=== PATIENT | female | born 1975 | race Caucasian/White ===

== ENCOUNTER → 2017-02-16 | Outpatient (CLI) | payer OTHER, MEDICAID ==
[~2017-02-16] MED LIST: BUTA1CAP58 PO; CLON0.5T PO; CYCL-259 PO; CYCL5TAB PO; DULO30CA4 PO; HYDR1TAB12 PO; LEVO750T26 PO; METR500T PO; PANT40TA5 PO; PHEN30CA2 PO; SUMA1TAB PO; TRAM50TA2 PO
[2017-02-17 09:46] LABS: HEPATITIS C VIRUS ANTIBODY Nonreactive (Nonreactive)
[2017-02-18 18:06] LABS: HERPES SIMPLEX VIRUS-1 DNA PCR Negative (Negative); HERPES SIMPLEX VIRUS-2 DNA PCR Negative (Negative)
== END | disposition home or self-care (01) ==
LOC: LAB 13:19
PROVIDERS: ATTEND Obstetrics & Gynecology
DX: Z11.3 Encounter for screening for infections with a predominantly sexual mode of transmission (principal)
CPT/HCPCS: 86592; 86803; 87340; 87491; 87529; 87591

== ENCOUNTER → 2017-03-25 | Outpatient (CLI) | payer OTHER ==
[2017-03-26 11:19] LABS: OCCBLD OBC PASS
== END | disposition home or self-care (01) ==
LOC: LAB 08:14
PROVIDERS: ATTEND Internal Medicine Hematology & Oncology
DX: D50.9 Iron deficiency anemia, unspecified (principal)
CPT/HCPCS: 82272

== ENCOUNTER → 2017-04-27 | Outpatient (CLI) | payer OTHER ==
[2017-04-27 07:32] LABS: ASPARTATE AMINO TRANSFERASE 15 U/L (15-37); BLOOD UREA NITROGEN 12 mg/dL (7-18)
== END | disposition home or self-care (01) ==
LOC: LAB 06:50
PROVIDERS: ATTEND Internal Medicine Hematology & Oncology
DX: E28.2 Polycystic ovarian syndrome (principal); D50.9 Iron deficiency anemia, unspecified
CPT/HCPCS: 36415; 80053; 82607; 82728; 83036; 85025

== ENCOUNTER 2017-05-20 11:59 | Emergency (ER) | payer OTHER, MEDICAID ==
[~2017-05-20] VITALS: Ht 154.9 cm; Wt 90.0 kg
[2017-05-20 12:07] VITALS: BP 116/79
[2017-05-20] MEDS ORDERED: KETOROLAC 30 MG/1 ML ONE (12:22)
[2017-05-20] MEDS ORDERED: KETOROLAC 30 MG/1 ML IM ONE (12:30)
== END 2017-05-20 13:04 | disposition home or self-care (01) ==
LOC: ED 12:57
DX: M72.2 Plantar fascial fibromatosis (principal); M79.672 Pain in left foot; F17.210 Nicotine dependence, cigarettes, uncomplicated; Z88.0 Allergy status to penicillin; Z88.5 Allergy status to narcotic agent
CPT/HCPCS: 73630; 96372; 99284; J1885

== ENCOUNTER → 2017-07-02 | Outpatient (CLI) | payer OTHER, MEDICAID ==
[2017-07-02 15:57] LABS: HEMATOCRIT 48.5 % (34.6-47.8); HEMOGLOBIN 15.7 g/dL (11.7-16.4); WHITE BLOOD COUNT 8.4 x10^3/uL (3.4-10)
[2017-07-02 16:38] LABS: ASPARTATE AMINO TRANSFERASE 17 U/L (15-37); BLOOD UREA NITROGEN 20 mg/dL (7-18); FERRITIN 193.9 ng/mL (8-252); LACTATE DEHYDROGENASE 203 U/L (84-246)
== END | disposition home or self-care (01) ==
LOC: CFH 13:46
PROVIDERS: ATTEND Internal Medicine Hematology & Oncology
DX: D50.9 Iron deficiency anemia, unspecified (principal); Z88.0 Allergy status to penicillin; Z88.8 Allergy status to other drugs, medicaments and biological substances
CPT/HCPCS: 36415; 80053; 82607; 82728; 83615; 85025

== ENCOUNTER → 2017-08-05 | Outpatient (CLI) | payer OTHER, MEDICAID | END | disposition home or self-care (01) | LOC: CFH 13:41 | PROVIDERS: ATTEND Nurse Practitioner Primary Care | DX: R05 Cough (principal) | CPT/HCPCS: 71020 ==

== ENCOUNTER → 2017-10-16 | Outpatient (CLI) | payer OTHER, MEDICAID ==
[~2017-10-16] MED LIST changes: -PHEN30CA2 PO; +PHEN30CA3 PO
[2017-10-16 12:35] LABS: HEMATOCRIT 47.1 % (34.6-47.8); HEMOGLOBIN 15.8 g/dL (11.7-16.4); WHITE BLOOD COUNT 6.4 x10^3/uL (3.4-10)
[2017-10-16 12:52] LABS: ASPARTATE AMINO TRANSFERASE 18 U/L (15-37); BLOOD UREA NITROGEN 11 mg/dL (7-18)
[2017-10-16 13:21] LABS: FERRITIN 72.9 ng/mL (8-252); LACTATE DEHYDROGENASE 230 U/L (84-246)
== END | disposition home or self-care (01) ==
LOC: LAB 09:15
PROVIDERS: ATTEND Internal Medicine Hematology & Oncology
DX: D50.9 Iron deficiency anemia, unspecified (principal)
CPT/HCPCS: 36415; 80053; 82607; 82728; 83615; 85025

== ENCOUNTER → 2017-11-18 | Outpatient (CLI) | payer MEDICAID, OTHER | END | disposition home or self-care (01) | LOC: CFH 11:22 | PROVIDERS: ATTEND Registered Nurse | DX: G43.709 Chronic migraine without aura, not intractable, without status migrainosus (principal) | CPT/HCPCS: 70450 ==

== ENCOUNTER → 2017-11-27 | Outpatient (CLI) | payer OTHER | END | disposition home or self-care (01) | LOC: LAB 09:08 | PROVIDERS: ATTEND Obstetrics & Gynecology | DX: Z11.3 Encounter for screening for infections with a predominantly sexual mode of transmission (principal) | CPT/HCPCS: 36415; 86703; 87529; 87536; 87899; G0435 ==

== ENCOUNTER → 2017-12-04 | Outpatient (CLI) | payer MEDICAID, OTHER | END | disposition home or self-care (01) | LOC: CFH 09:56 | PROVIDERS: ATTEND Obstetrics & Gynecology | DX: Z12.31 Encounter for screening mammogram for malignant neoplasm of breast (principal) | CPT/HCPCS: 77063; 77067 ==

== ENCOUNTER 2017-12-14 11:29 | Emergency (ER) | payer OTHER ==
[~2017-12-14] VITALS: Ht 154.9 cm; Wt 106.9 kg
[2017-12-14 11:39] VITALS: BP 127/87
[2017-12-14 12:40] LABS: BASOPHILS # (AUTO) 0.02 x10^3/uL (0-0.1); BASOPHILS % (AUTO) 0 % (0-1); EOSINOPHILS # (AUTO) 0.31 x10^3/uL (0-0.4); EOSINOPHILS % (AUTO) 4 % (1-7); LYMPHOCYTES % (AUTO) 18 % (22-44); MD NO; MEAN CORPUSCULAR HEMOGLOBIN 33.1 pg (27.0-34.8); MEAN CORPUSCULAR HGB CONC 33.6 g/dL (32.4-35.8); MEAN CORPUSCULAR VOLUME 98.7 fL (80-100); MEAN PLATELET VOLUME 9.3 fL (7.4-10.4); MONOCYTES # (AUTO) 0.53 x10^3/uL (0.2-0.8); MONOCYTES % (AUTO) 6 % (2-9); NEUTROPHILS # (AUTO) 6.48 x10^3/uL (1.8-6.8); NEUTROPHILS % (AUTO) 73 % (42-75); PLATELET COUNT 182 x10^3/uL (130-400); RED BLOOD COUNT 4.44 x10^6/uL (3.82-5.3); RED CELL DISTRIBUTION WIDTH 13.6 % (9.6-15.2)
[2017-12-14 12:52] LABS: ALBUMIN 3.7 g/dL (3.4-5.0); ANION GAP 6 mmol/L (5-15); CALCIUM 7.9 mg/dL (8.5-10.1); CHLORIDE 107 mmol/L (98-107); CREATININE 0.68 mg/dL (0.55-1.02)
[2017-12-14] MEDS ORDERED: KETOROLAC 30 MG/1 ML IM ONE (16:30)
[2017-12-14] MEDS ORDERED: KETOROLAC 30 MG/1 ML ONE (16:44)
== END 2017-12-14 17:03 | disposition home or self-care (01) ==
LOC: ED 17:01
DX: R07.89 Other chest pain (principal); M75.92 Shoulder lesion, unspecified, left shoulder; Z88.0 Allergy status to penicillin
CPT/HCPCS: 36415; 71046; 80048; 82040; 84703; 85025; 85379; 93005; 96372; 99285; J1885

== ENCOUNTER 2017-12-21 08:38 | Emergency (ER) | payer OTHER ==
[~2017-12-21] VITALS: Ht 154.9 cm; Wt 104.7 kg
[2017-12-21 08:40] VITALS: BP 129/89
[2017-12-21] MEDS ORDERED: OXYcodone/APAP 5/325MG TABLET ONE (09:15)
[2017-12-21] MEDS ORDERED: OXYcodone/APAP 5/325MG TABLET PO ONE (09:30)
== END 2017-12-21 09:51 | disposition home or self-care (01) ==
LOC: ED 09:35
DX: S52.501A Unspecified fracture of the lower end of right radius, initial encounter for closed fracture (principal); W18.30XA Fall on same level, unspecified, initial encounter; Y93.89 Activity, other specified; Y92.89 Other specified places as the place of occurrence of the external cause; Y99.8 Other external cause status
CPT/HCPCS: 29125; 99283

== ENCOUNTER → 2018-01-25 | Outpatient (CLI) | payer OTHER | END | disposition home or self-care (01) | LOC: CFH 07:56 | PROVIDERS: ATTEND Surgery | DX: K21.9 Gastro-esophageal reflux disease without esophagitis (principal); E66.01 Morbid (severe) obesity due to excess calories; Z98.84 Bariatric surgery status | CPT/HCPCS: 74241 ==

== ENCOUNTER → 2018-02-18 | Outpatient (CLI) | payer OTHER ==
[2018-02-18 15:42] LABS: BASOPHILS # (AUTO) 0.06 x10^3/uL (0-0.1); BASOPHILS % (AUTO) 1 % (0-1); EOSINOPHILS # (AUTO) 0.27 x10^3/uL (0-0.4); EOSINOPHILS % (AUTO) 3 % (1-7); LYMPHOCYTES # (AUTO) 2.28 x10^3/uL (1-3.4); LYMPHOCYTES % (AUTO) 23 % (22-44); MD NO; MEAN CORPUSCULAR HEMOGLOBIN 32.9 pg (27.0-34.8); MEAN CORPUSCULAR HGB CONC 32.9 g/dL (32.4-35.8); MEAN CORPUSCULAR VOLUME 100.1 fL (80-100); MEAN PLATELET VOLUME 10.9 fL (7.4-10.4); MONOCYTES # (AUTO) 0.69 x10^3/uL (0.2-0.8); MONOCYTES % (AUTO) 7 % (2-9); NEUTROPHILS # (AUTO) 6.64 x10^3/uL (1.8-6.8); NEUTROPHILS % (AUTO) 67 % (42-75); PLATELET COUNT 181 x10^3/uL (130-400); RED BLOOD COUNT 5.13 x10^6/uL (3.82-5.3); RED CELL DISTRIBUTION WIDTH 14.1 % (9.6-15.2)
[2018-02-18 15:51] LABS: CHLORIDE 111 mmol/L (98-107)
[2018-02-18 16:32] LABS: ALANINE AMINOTRANSFERASE 30 U/L (12-78); ALKALINE PHOSPHATASE 78 U/L (45-117); ANION GAP 9 mmol/L (5-15); BILIRUBIN,TOTAL 0.6 mg/dL (0.2-1.0); CALCIUM 8.8 mg/dL (8.5-10.1); CREATININE 0.75 mg/dL (0.55-1.02); TOTAL PROTEIN 7.6 g/dL (6.4-8.2)
== END | disposition home or self-care (01) ==
LOC: LAB 14:10
PROVIDERS: ATTEND Internal Medicine Hematology & Oncology
DX: D50.9 Iron deficiency anemia, unspecified (principal)
CPT/HCPCS: 36415; 80053; 82607; 82728; 83615; 85025

== ENCOUNTER → 2018-03-23 | Outpatient (CLI) | payer OTHER ==
[~2018-03-23] MED LIST changes: +PREG150C PO; +RIZA10TA20 PO
[2018-03-23 08:50] LABS: BASOPHILS # (AUTO) 0.07 x10^3/uL (0-0.1); BASOPHILS % (AUTO) 1 % (0-1); EOSINOPHILS # (AUTO) 0.27 x10^3/uL (0-0.4); EOSINOPHILS % (AUTO) 3 % (1-7); LYMPHOCYTES # (AUTO) 1.55 x10^3/uL (1-3.4); LYMPHOCYTES % (AUTO) 18 % (22-44); MD NO; MEAN CORPUSCULAR HEMOGLOBIN 32.7 pg (27.0-34.8); MEAN CORPUSCULAR HGB CONC 33.3 g/dL (32.4-35.8); MEAN CORPUSCULAR VOLUME 98.2 fL (80-100); MEAN PLATELET VOLUME 9.4 fL (7.4-10.4); MONOCYTES % (AUTO) 6 % (2-9); NEUTROPHILS # (AUTO) 6.22 x10^3/uL (1.8-6.8); NEUTROPHILS % (AUTO) 72 % (42-75); PLATELET COUNT 177 x10^3/uL (130-400); RED BLOOD COUNT 4.97 x10^6/uL (3.82-5.3); RED CELL DISTRIBUTION WIDTH 13.9 % (9.6-15.2)
[2018-03-23 08:57] LABS: INTERNATIONAL NORMALIZED RATIO 1.01 (0.93-1.1); PROTHROMBIN TIME 10.5 Seconds (9.6-11.5)
[2018-03-23 09:03] LABS: ALANINE AMINOTRANSFERASE 34 U/L (12-78); ALBUMIN 4.1 g/dL (3.4-5.0); ANION GAP 7 mmol/L (5-15); CALCIUM 8.3 mg/dL (8.5-10.1); CHLORIDE 109 mmol/L (98-107); CREATININE 0.69 mg/dL (0.55-1.02)
[2018-03-23 09:05] LABS: ALKALINE PHOSPHATASE 85 U/L (45-117); BILIRUBIN,TOTAL 0.5 mg/dL (0.2-1.0); TOTAL PROTEIN 7.7 g/dL (6.4-8.2)
== END | disposition home or self-care (01) ==
LOC: STAR 08:11
PROVIDERS: ATTEND Surgery
DX: Z01.818 Encounter for other preprocedural examination (principal)
CPT/HCPCS: 36415; 71046; 80053; 85025; 85610; 93005

== ENCOUNTER 2018-04-02 09:11 | Inpatient (IN) | payer OTHER ==
[~2018-04-02] VITALS: Ht 154.9 cm; Wt 108.7 kg
[2018-04-02] MEDS ORDERED: LACTATED RINGERS 1,000 ML IV SCH (12:17)
[2018-04-02] MEDS ORDERED: OxyconTIN ER 20 MG TAB.ER PO ONE (12:30)
[2018-04-02] MEDS ORDERED: ACETAMINOPHEN 500 MG TABLET PO ONE (12:30)
[2018-04-02] MEDS ORDERED: GABAPENTIN 300 MG CAPSULE PO ONE (12:30)
[2018-04-02] MEDS ORDERED: SCOPOLAMINE PATCH, 1.5MG PATCH.TD72 TD ONE (12:30)
[2018-04-02] MEDS ORDERED: ONDANSETRON ODT 8 MG PO ONE (12:30)
[2018-04-02] MEDS ORDERED: LIDOCAINE-MPF 1%, 2ML ONE (12:48)
[2018-04-02] MEDS ORDERED: FENTANYL PF 250 MCG/5ML ONE ×2 (13:01→16:07)
[2018-04-02] MEDS ORDERED: MIDAZOLAM 1 MG/ML, 2ML ONE (13:01)
[2018-04-02] MEDS ORDERED: PROPOFOL 10 MG/ML, 20ML ONE (13:03)
[2018-04-02] MEDS ORDERED: ROCURONIUM 10MG/ML,5ML ONE (13:03)
[2018-04-02] MEDS ORDERED: DEXAMETHASONE 4 MG/ML, 1ML ONE ×2 (13:04)
[2018-04-02 13:09] VITALS: BP 126/85
[2018-04-02] MEDS ORDERED: ASPI-496 PO (13:19)
[2018-04-02] MEDS ORDERED: BUPIVACAINE/PF 0.25% ONE (14:39)
[2018-04-02] MEDS ORDERED: CEFOTETAN 1 GM ONE (15:13)
[2018-04-02] MEDS ORDERED: NEOSTIGMINE 1 MG/ML, 10ML ONE (15:13)
[2018-04-02] MEDS ORDERED: GLYCOPYRROLATE 0.2MG/1ML, 5ML ONE ×2 (15:13→17:48)
[2018-04-02] MEDS ORDERED: HALOPERIDOL 5 MG/ML IV PRN (16:00)
[2018-04-02] MEDS ORDERED: MEPERIDINE/PF 25MG/0.5ML IVPush PRN (16:00)
[2018-04-02] MEDS ORDERED: LORazepam 2 MG/ML, 1ML IVPush PRN (16:00)
[2018-04-02] MEDS ORDERED: PROMETHAZINE 25 MG/ML, 1ML IV PRN (16:00)
[2018-04-02] MEDS ORDERED: hydrALAzine 20 MG/ML, 1ML IV PRN (16:00)
[2018-04-02] MEDS ORDERED: OXYcodone 5 MG/5 ML ORAL.SOL UDC PO PRN (16:00)
[2018-04-02] MEDS ORDERED: LABETALOL 5MG/ML, 20ML IV PRN (16:00)
[2018-04-02] MEDS ORDERED: GLYCOPYRROLATE 0.4 MG/2 ML, 2ML ONE (17:48)
[2018-04-02] MEDS ORDERED: DIPHENHYDRAMINE 25 MG CAPSULE PO PRN (18:00)
[2018-04-02] MEDS ORDERED: ENALAPRILAT 1.25 MG/ML, 2ML IV PRN (18:00)
[2018-04-02] MEDS ORDERED: TEMAZEPAM 15 MG CAPSULE PO PRN (18:00)
[2018-04-02] MEDS ORDERED: PROMETHAZINE 25 MG SUPP PR PRN (18:00)
[2018-04-02] MEDS ORDERED: HYDROmorphone PCA 30 MG/30 ML IV PRN (18:00)
[2018-04-02] MEDS ORDERED: LORazepam 2 MG/ML, 1ML IV PRN (18:00)
[2018-04-02] MEDS ORDERED: SUGAMMADEX 200 MG/2 ML IVPush ONE (18:03)
[2018-04-02] MEDS ORDERED: HYDROmorphone 1 MG/ML, 1ML ONE ×2 (18:22→18:57)
[2018-04-02] MEDS ORDERED: FENTANYL PF 100 MCG/2ML ONE (18:22)
[2018-04-02] MEDS: HYDROmorphone 1 MG/ML, 1ML IV PRN ×3 (18:25→19:14)
[2018-04-02] MEDS: FENTANYL PF 100 MCG/2ML IV PRN ×2 (18:27→18:56)
[2018-04-02] MEDS ORDERED: FENTANYL 1500 MCG/30 ML PCA IV PRN (18:30)
[2018-04-02 20:12] LABS: MEAN CORPUSCULAR HEMOGLOBIN 33.4 pg (27.0-34.8); MEAN CORPUSCULAR HGB CONC 33.6 g/dL (32.4-35.8); MEAN CORPUSCULAR VOLUME 99.3 fL (80-100); MEAN PLATELET VOLUME 9.1 fL (7.4-10.4); PLATELET COUNT 199 x10^3/uL (130-400); RED BLOOD COUNT 3.93 x10^6/uL (3.82-5.3); RED CELL DISTRIBUTION WIDTH 13.8 % (9.6-15.2)
[2018-04-02 20:30] VITALS: BP 122/85
[2018-04-02 20:51] LABS: MD YES
[2018-04-02 20:53] LABS: BAND#(MANUAL) 0.82 x10^3/uL; BANDS%(MANUAL) 6 % (0-7); LYMPH#(MANUAL) 0.14 x10^3/uL (1-3.4); LYMPHS% (MANUAL) 1 % (22-44); MONOS#(MANUAL) 0.69 x10^3/uL (0.3-2.7); MONOS% (MANUAL) 5 % (2-9); SEGS% (MANUAL) 88 % (42-75)
[2018-04-02 20:55] LABS: <PLATELET ESTIMATE> ADEQUATE; <PLT MORPHOLOGY> NORMAL PLT MORPH
[2018-04-02] MEDS: PREGABALIN 150 MG CAPSULE PO SCH (21:00)
[2018-04-02] MEDS: ONDANSETRON 2MG/ML, 2ML IVPush PRN (21:38)
[2018-04-02] MEDS: FAMOTIDINE 20 MG/2 ML IVPush SCH (21:38)
[2018-04-02] MEDS: POTASSIUM CHLORIDE 20 MEQ in LACTATED RINGERS 1,000 ML IV SCH (23:32)
[2018-04-02 23:36] VITALS: BP 135/83
[2018-04-03] MEDS: DIPHENHYDRAMINE 50 MG/ML, 1ML IV PRN ×2 (01:52→15:00)
[2018-04-03 03:46] VITALS: BP 134/76
[2018-04-03] MEDS: ONDANSETRON 2MG/ML, 2ML IVPush PRN ×4 (03:53→22:36)
[2018-04-03] MEDS: RIZATRIPTAN BENZOATE 10 MG HOMEMEDPO PRN ×3 (04:14→15:00)
[2018-04-03] MEDS: POTASSIUM CHLORIDE 20 MEQ in LACTATED RINGERS 1,000 ML IV SCH ×3 (06:45→22:36)
[2018-04-03 07:18] LABS: ALANINE AMINOTRANSFERASE 91 U/L (12-78); ANION GAP 5 mmol/L (5-15); CALCIUM 7.7 mg/dL (8.5-10.1); CHLORIDE 106 mmol/L (98-107); CREATININE 0.65 mg/dL (0.55-1.02)
[2018-04-03 07:20] LABS: ALKALINE PHOSPHATASE 55 U/L (45-117); BILIRUBIN,TOTAL 0.5 mg/dL (0.2-1.0); TOTAL PROTEIN 5.9 g/dL (6.4-8.2)
[2018-04-03 07:45] LABS: BASOPHILS # (AUTO) 0.05 x10^3/uL (0-0.1); BASOPHILS % (AUTO) 1 % (0-1); EOSINOPHILS # (AUTO) 0.08 x10^3/uL (0-0.4); EOSINOPHILS % (AUTO) 1 % (1-7); LYMPHOCYTES # (AUTO) 0.89 x10^3/uL (1-3.4); LYMPHOCYTES % (AUTO) 8 % (22-44); MD NO; MEAN CORPUSCULAR HEMOGLOBIN 32.9 pg (27.0-34.8); MEAN CORPUSCULAR HGB CONC 33.5 g/dL (32.4-35.8); MEAN CORPUSCULAR VOLUME 98.4 fL (80-100); MEAN PLATELET VOLUME 9.4 fL (7.4-10.4); MONOCYTES # (AUTO) 0.98 x10^3/uL (0.2-0.8); MONOCYTES % (AUTO) 9 % (2-9); NEUTROPHILS # (AUTO) 8.89 x10^3/uL (1.8-6.8); NEUTROPHILS % (AUTO) 82 % (42-75); PLATELET COUNT 200 x10^3/uL (130-400); RED BLOOD COUNT 3.66 x10^6/uL (3.82-5.3); RED CELL DISTRIBUTION WIDTH 13.7 % (9.6-15.2)
[2018-04-03] MEDS: FAMOTIDINE 20 MG/2 ML IVPush SCH (08:58)
[2018-04-03] MEDS ORDERED: FAMOTIDINE 20 MG/2 ML IVPush SCH (09:00)
[2018-04-03] MEDS: PREGABALIN 150 MG CAPSULE PO SCH ×2 (09:16→20:02)
[2018-04-03] MEDS: MEPERIDINE/PF 25MG/0.5ML IVPush PRN ×5 (10:18→22:54)
[2018-04-03] MEDS ORDERED: PHENOL THROAT SPRAY BOTTLE MM PRN (11:00)
[2018-04-03] MEDS: ENOXAPARIN 30 MG/0.3 ML SQ SCH ×2 (11:05→22:40)
[2018-04-03] MEDS ORDERED: ACETAMINOPHEN 325 MG TABLET PO PRN (11:30)
[2018-04-03] MEDS ORDERED: MEPERIDINE/PF 100 MG/ML ONE ×4 (13:27→22:50)
[2018-04-03 14:17] VITALS: BP 150/86
[2018-04-03 20:40] VITALS: BP 144/93
[2018-04-04] MEDS ORDERED: MEPERIDINE/PF 100 MG/ML ONE ×7 (01:49→21:20)
[2018-04-04] MEDS: MEPERIDINE/PF 25MG/0.5ML IVPush PRN ×6 (01:54→21:26)
[2018-04-04 03:01] VITALS: BP 135/82
[2018-04-04] MEDS: ONDANSETRON 2MG/ML, 2ML IVPush PRN (05:40)
[2018-04-04] MEDS: PREGABALIN 150 MG CAPSULE PO SCH ×2 (08:46→21:00)
[2018-04-04] MEDS: FAMOTIDINE 20 MG/2 ML IVPush SCH (08:46)
[2018-04-04] MEDS: RIZATRIPTAN BENZOATE 10 MG HOMEMEDPO PRN (08:47)
[2018-04-04 08:51] VITALS: BP 132/68
[2018-04-04] MEDS: POTASSIUM CHLORIDE 20 MEQ in LACTATED RINGERS 1,000 ML IV SCH ×2 (09:38→21:24)
[2018-04-04 09:53] LABS: BASOPHILS # (AUTO) 0.03 x10^3/uL (0-0.1); BASOPHILS % (AUTO) 0 % (0-1); EOSINOPHILS # (AUTO) 0.66 x10^3/uL (0-0.4); EOSINOPHILS % (AUTO) 7 % (1-7); LYMPHOCYTES # (AUTO) 0.95 x10^3/uL (1-3.4); LYMPHOCYTES % (AUTO) 10 % (22-44); MD NO; MEAN CORPUSCULAR HEMOGLOBIN 33.7 pg (27.0-34.8); MEAN CORPUSCULAR VOLUME 99.1 fL (80-100); MEAN PLATELET VOLUME 9.7 fL (7.4-10.4); MONOCYTES # (AUTO) 0.74 x10^3/uL (0.2-0.8); MONOCYTES % (AUTO) 8 % (2-9); NEUTROPHILS # (AUTO) 7.14 x10^3/uL (1.8-6.8); NEUTROPHILS % (AUTO) 75 % (42-75); PLATELET COUNT 151 x10^3/uL (130-400); RED BLOOD COUNT 3.07 x10^6/uL (3.82-5.3); RED CELL DISTRIBUTION WIDTH 13.8 % (9.6-15.2)
[2018-04-04 11:28] LABS: ALANINE AMINOTRANSFERASE 69 U/L (12-78); ALBUMIN 2.9 g/dL (3.4-5.0); ANION GAP 5 mmol/L (5-15); CALCIUM 8.1 mg/dL (8.5-10.1); CHLORIDE 104 mmol/L (98-107); CREATININE 0.41 mg/dL (0.55-1.02)
[2018-04-04 11:31] LABS: ALKALINE PHOSPHATASE 53 U/L (45-117); BILIRUBIN,TOTAL 0.4 mg/dL (0.2-1.0)
[2018-04-04] MEDS: SUMATRIPTAN 6MG/0.5ML SQ PRN (12:22)
[2018-04-04] MEDS: ENOXAPARIN 30 MG/0.3 ML SQ SCH (12:22)
[2018-04-04 14:14] VITALS: BP 108/45
[2018-04-04 20:02] VITALS: BP 132/79
[2018-04-05] MEDS: ENOXAPARIN 30 MG/0.3 ML SQ SCH ×2 (00:06→11:31)
[2018-04-05] MEDS ORDERED: MEPERIDINE/PF 100 MG/ML ONE ×6 (01:08→17:43)
[2018-04-05] MEDS: MEPERIDINE/PF 25MG/0.5ML IVPush PRN ×7 (01:38→21:16)
[2018-04-05] MEDS: SUMATRIPTAN 6MG/0.5ML SQ PRN (01:42)
[2018-04-05 02:00] VITALS: BP 122/73
[2018-04-05 05:25] LABS: BASOPHILS # (AUTO) 0.02 x10^3/uL (0-0.1); BASOPHILS % (AUTO) 0 % (0-1); EOSINOPHILS # (AUTO) 0.47 x10^3/uL (0-0.4); EOSINOPHILS % (AUTO) 6 % (1-7); LYMPHOCYTES # (AUTO) 1.37 x10^3/uL (1-3.4); LYMPHOCYTES % (AUTO) 17 % (22-44); MD NO; MEAN CORPUSCULAR HEMOGLOBIN 33.5 pg (27.0-34.8); MEAN CORPUSCULAR HGB CONC 33.6 g/dL (32.4-35.8); MEAN CORPUSCULAR VOLUME 99.6 fL (80-100); MEAN PLATELET VOLUME 9.3 fL (7.4-10.4); MONOCYTES # (AUTO) 0.69 x10^3/uL (0.2-0.8); MONOCYTES % (AUTO) 9 % (2-9); NEUTROPHILS # (AUTO) 5.46 x10^3/uL (1.8-6.8); NEUTROPHILS % (AUTO) 68 % (42-75); PLATELET COUNT 153 x10^3/uL (130-400); RED BLOOD COUNT 2.94 x10^6/uL (3.82-5.3); RED CELL DISTRIBUTION WIDTH 13.7 % (9.6-15.2)
[2018-04-05 05:26] LABS: CHLORIDE 103 mmol/L (98-107)
[2018-04-05 05:33] LABS: ALANINE AMINOTRANSFERASE 55 U/L (12-78); ALBUMIN 2.9 g/dL (3.4-5.0); ALKALINE PHOSPHATASE 53 U/L (45-117); ANION GAP 5 mmol/L (5-15); BILIRUBIN,TOTAL 0.5 mg/dL (0.2-1.0); CREATININE 0.37 mg/dL (0.55-1.02); TOTAL PROTEIN 6.2 g/dL (6.4-8.2)
[2018-04-05 07:52] VITALS: BP 101/56
[2018-04-05] MEDS: FAMOTIDINE 20 MG/2 ML IVPush SCH (08:14)
[2018-04-05] MEDS: PREGABALIN 150 MG CAPSULE PO SCH ×2 (09:00→20:06)
[2018-04-05] MEDS: POTASSIUM CHLORIDE 20 MEQ in LACTATED RINGERS 1,000 ML IV SCH (12:27)
[2018-04-05 14:30] VITALS: BP 117/74
[2018-04-05 20:00] VITALS: BP 112/68
[2018-04-06] MEDS: MEPERIDINE/PF 25MG/0.5ML IVPush PRN ×8 (00:03→22:33)
[2018-04-06] MEDS: ENOXAPARIN 30 MG/0.3 ML SQ SCH ×2 (01:09→11:48)
[2018-04-06] MEDS: POTASSIUM CHLORIDE 20 MEQ in LACTATED RINGERS 1,000 ML IV SCH (01:09)
[2018-04-06 01:23] VITALS: BP 104/54
[2018-04-06] MEDS ORDERED: OXYcodone/APAP 5/325MG TABLET PO PRN (07:00)
[2018-04-06] MEDS: OMEPRAZOLE 20 MG CAPSULE.DR PO SCH (07:30)
[2018-04-06 08:01] VITALS: BP_SYST 120
[2018-04-06] MEDS: PREGABALIN 150 MG CAPSULE PO SCH ×2 (09:00→20:07)
[2018-04-06 09:01] LABS: BASOPHILS # (AUTO) 0.01 x10^3/uL (0-0.1); BASOPHILS % (AUTO) 0 % (0-1); EOSINOPHILS # (AUTO) 0.39 x10^3/uL (0-0.4); EOSINOPHILS % (AUTO) 6 % (1-7); LYMPHOCYTES # (AUTO) 1.07 x10^3/uL (1-3.4); LYMPHOCYTES % (AUTO) 16 % (22-44); MD NO; MEAN CORPUSCULAR HEMOGLOBIN 32.9 pg (27.0-34.8); MEAN CORPUSCULAR HGB CONC 33.7 g/dL (32.4-35.8); MEAN CORPUSCULAR VOLUME 97.6 fL (80-100); MEAN PLATELET VOLUME 8.8 fL (7.4-10.4); MONOCYTES # (AUTO) 0.53 x10^3/uL (0.2-0.8); MONOCYTES % (AUTO) 8 % (2-9); NEUTROPHILS # (AUTO) 4.68 x10^3/uL (1.8-6.8); NEUTROPHILS % (AUTO) 70 % (42-75); PLATELET COUNT 174 x10^3/uL (130-400); RED BLOOD COUNT 2.93 x10^6/uL (3.82-5.3); RED CELL DISTRIBUTION WIDTH 13.6 % (9.6-15.2)
[2018-04-06] MEDS: ALUMINUM/MAG/SIMETHICONE 30 ML UDC PO PRN ×3 (09:01→22:32)
[2018-04-06 09:13] LABS: ANION GAP 11 mmol/L (5-15); CALCIUM 8.3 mg/dL (8.5-10.1); CHLORIDE 102 mmol/L (98-107)
[2018-04-06 09:17] LABS: ALANINE AMINOTRANSFERASE 39 U/L (12-78); ALKALINE PHOSPHATASE 63 U/L (45-117); BILIRUBIN,TOTAL 0.6 mg/dL (0.2-1.0); CREATININE 0.43 mg/dL (0.55-1.02); TOTAL PROTEIN 6.4 g/dL (6.4-8.2)
[2018-04-06] MEDS ORDERED: MEPERIDINE/PF 100 MG/ML ONE ×5 (09:55→22:29)
[2018-04-06 12:43] VITALS: BP 121/79
[2018-04-06 20:09] VITALS: BP 114/75
[2018-04-07] MEDS: ENOXAPARIN 30 MG/0.3 ML SQ SCH (00:39)
[2018-04-07 01:24] VITALS: BP 128/78
[2018-04-07 07:09] VITALS: BP 114/70
[2018-04-07] MEDS ORDERED: MEPERIDINE/PF 100 MG/ML ONE (07:46)
[2018-04-07] MEDS: OMEPRAZOLE 20 MG CAPSULE.DR PO SCH (07:50)
[2018-04-07] MEDS: MEPERIDINE/PF 25MG/0.5ML IVPush PRN (07:57)
[2018-04-07] MEDS: PREGABALIN 150 MG CAPSULE PO SCH (09:00)
[2018-04-07 09:35] LABS: BASOPHILS # (AUTO) 0.01 x10^3/uL (0-0.1); BASOPHILS % (AUTO) 0 % (0-1); EOSINOPHILS # (AUTO) 0.43 x10^3/uL (0-0.4); EOSINOPHILS % (AUTO) 5 % (1-7); LYMPHOCYTES % (AUTO) 12 % (22-44); MD NO; MEAN CORPUSCULAR HEMOGLOBIN 32.6 pg (27.0-34.8); MEAN CORPUSCULAR HGB CONC 33.1 g/dL (32.4-35.8); MEAN CORPUSCULAR VOLUME 98.2 fL (80-100); MONOCYTES # (AUTO) 0.61 x10^3/uL (0.2-0.8); MONOCYTES % (AUTO) 8 % (2-9); NEUTROPHILS # (AUTO) 5.97 x10^3/uL (1.8-6.8); NEUTROPHILS % (AUTO) 74 % (42-75); PLATELET COUNT 223 x10^3/uL (130-400); RED BLOOD COUNT 3.35 x10^6/uL (3.82-5.3); RED CELL DISTRIBUTION WIDTH 13.6 % (9.6-15.2)
[2018-04-07 09:37] LABS: ALBUMIN 3.2 g/dL (3.4-5.0); ANION GAP 11 mmol/L (5-15); CALCIUM 8.7 mg/dL (8.5-10.1); CHLORIDE 103 mmol/L (98-107)
[2018-04-07 09:41] LABS: ALANINE AMINOTRANSFERASE 35 U/L (12-78); ALKALINE PHOSPHATASE 73 U/L (45-117); BILIRUBIN,TOTAL 0.6 mg/dL (0.2-1.0); CREATININE 0.44 mg/dL (0.55-1.02); TOTAL PROTEIN 7.2 g/dL (6.4-8.2)
== END 2018-04-07 10:45 | disposition home or self-care (01) | DRG 620 ==
LOC: ORIP 09:11 → 4NOR 20:29 → DCLOUNGE 04-07 10:31
PROVIDERS: ADMIT Surgery; ATTEND Surgery
PROC: 0DNW0ZZ Release Peritoneum, Open Approach (ICD-10-PCS; 2018-04-02)
PROC: 0FT40ZZ Resection of Gallbladder, Open Approach (ICD-10-PCS; 2018-04-02)
PROC: 0DBU0ZZ Excision of Omentum, Open Approach (ICD-10-PCS; 2018-04-02)
PROC: 0DBB0ZZ Excision of Ileum, Open Approach (ICD-10-PCS; 2018-04-02)
PROC: 0DB60Z3 Excision of Stomach, Open Approach, Vertical (ICD-10-PCS; principal; 2018-04-02 15:30)
DX: E66.01 Morbid (severe) obesity due to excess calories (principal); K80.44 Calculus of bile duct with chronic cholecystitis without obstruction; G43.909 Migraine, unspecified, not intractable, without status migrainosus; K66.0 Peritoneal adhesions (postprocedural) (postinfection); Z98.84 Bariatric surgery status; F41.9 Anxiety disorder, unspecified; Z68.42 Body mass index [BMI] 45.0-49.9, adult
CPT/HCPCS: 36415; 80053; 81025; 85025; 86850; 86900; 88300; 88304; 88305; 88307; C1729; J1100; J1170; J1650; J2175; J2250; J2405; J2704; J2710; J3010; J3480; J3490; C1765; J1200; J3030; J7120; S0028; S0074

== ENCOUNTER 2018-09-10 01:55 | Emergency (ER) | payer OTHER ==
[~2018-09-10] VITALS: Ht 154.9 cm; Wt 91.0 kg
[~2018-09-10 01:55] MED LIST changes: +ASPI-496 PO
[2018-09-10 03:16] VITALS: BP 139/88
== END 2018-09-10 03:22 | disposition home or self-care (01) ==
LOC: ED 02:07
DX: J01.00 Acute maxillary sinusitis, unspecified (principal); Z87.11 Personal history of peptic ulcer disease; Z98.890 Other specified postprocedural states; Z98.84 Bariatric surgery status; Z87.891 Personal history of nicotine dependence
CPT/HCPCS: 99283

== ENCOUNTER 2018-09-29 02:12 | Outpatient (CLI) | payer OTHER | END 2018-10-06 10:54 | disposition home or self-care (01) | LOC: LAB 02:12 | PROVIDERS: ATTEND Internal Medicine Hematology & Oncology | DX: Z02.9 Encounter for administrative examinations, unspecified (principal) ==

== ENCOUNTER → 2018-09-29 | Outpatient (CLI) | payer OTHER ==
[2018-09-29 07:19] LABS: BASOPHILS # (AUTO) 0.01 x10^3/uL (0-0.1); BASOPHILS % (AUTO) 0 % (0-1); EOSINOPHILS # (AUTO) 0.25 x10^3/uL (0-0.4); EOSINOPHILS % (AUTO) 4 % (1-7); LYMPHOCYTES % (AUTO) 36 % (22-44); MD NO; MEAN CORPUSCULAR HEMOGLOBIN 34.5 pg (27.0-34.8); MEAN CORPUSCULAR HGB CONC 33.1 g/dL (32.4-35.8); MEAN CORPUSCULAR VOLUME 104.1 fL (80-100); MEAN PLATELET VOLUME 10.2 fL (7.4-10.4); MONOCYTES # (AUTO) 0.57 x10^3/uL (0.2-0.8); MONOCYTES % (AUTO) 9 % (2-9); NEUTROPHILS # (AUTO) 3.29 x10^3/uL (1.8-6.8); NEUTROPHILS % (AUTO) 51 % (42-75); PLATELET COUNT 167 x10^3/uL (130-400); RED BLOOD COUNT 3.84 x10^6/uL (3.82-5.3); RED CELL DISTRIBUTION WIDTH 15.6 % (9.6-15.2)
[2018-09-29 07:27] LABS: ALBUMIN 3.3 g/dL (3.4-5.0); ANION GAP 9 mmol/L (5-15); CHLORIDE 112 mmol/L (98-107)
[2018-09-29 07:57] LABS: % IRON SATURATION 20 % (20-55); ALANINE AMINOTRANSFERASE 26 U/L (12-78); ALKALINE PHOSPHATASE 118 U/L (45-117); BILIRUBIN,TOTAL 0.8 mg/dL (0.2-1.0); CHOL/HDL RATIO 2.7; CHOLESTEROL, TOTAL 138 mg/dL (140-239); CREATININE 0.53 mg/dL (0.55-1.02); HDL CHOL % 37 % (28-40); HDL CHOLESTEROL (DIRECT) 51 mg/dL (40-60); IRON LEVEL 64 mcg/dL (50-170); LDL CHOLESTEROL,CALCULATED 73 mg/dL (54-169); LDL/HDL RATIO 1.4 (0.5-3.0); PREALBUMIN 14.9 mg/dL (20.0-40.0); TOTAL IRON BINDING CAPACITY 319 mcg/dL (250-450); TOTAL PROTEIN 6.8 g/dL (6.4-8.2); TRANSFERRIN 233 mg/dL (200-360); TRIGLYCERIDES 70 mg/dL (50-200); VLDL CHOLESTEROL 14 mg/dL (0-25)
== END | disposition home or self-care (01) ==
LOC: LAB 02:15
PROVIDERS: ATTEND Physician Assistant Surgical
DX: E66.01 Morbid (severe) obesity due to excess calories (principal); R10.30 Lower abdominal pain, unspecified; R10.12 Left upper quadrant pain; B96.81 Helicobacter pylori [H. pylori] as the cause of diseases classified elsewhere; Z98.84 Bariatric surgery status; Z72.0 Tobacco use
CPT/HCPCS: 36415; 80053; 80061; 82306; 82607; 83540; 83550; 84134; 84207; 84425; 84466; 85025

== ENCOUNTER 2019-03-11 05:07 | Inpatient (IN) | payer OTHER ==
[~2019-03-11] VITALS: Ht 154.9 cm; Wt 93.7 kg
[~2019-03-11 05:07] MED LIST changes: +DULO30CA2 PO; -HYDR1TAB12 PO; +HYDR1TAB13 PO; +OMEP-110 PO; +ONAB100V INJ
[2019-03-11] MEDS ORDERED: BUPIVACAINE/PF-EPI 0.5% 1:200K ONE (06:00)
[2019-03-11] MEDS ORDERED: LACTATED RINGERS 1,000 ML IV SCH (06:15)
[2019-03-11] MEDS ORDERED: MIDAZOLAM 1 MG/ML, 2ML ONE (06:23)
[2019-03-11] MEDS ORDERED: FENTANYL PF 250 MCG/5ML ONE (06:24)
[2019-03-11] MEDS ORDERED: PROPOFOL 10 MG/ML, 20ML ONE (06:28)
[2019-03-11] MEDS ORDERED: DEXAMETHASONE 4 MG/ML, 1ML ONE (06:28)
[2019-03-11] MEDS ORDERED: ROCURONIUM 10MG/ML,5ML ONE (06:28)
[2019-03-11] MEDS ORDERED: CEFAZOLIN 1,000 MG ONE (06:28)
[2019-03-11] MEDS ORDERED: ONDANSETRON 2MG/ML, 2ML ONE (06:28)
[2019-03-11] MEDS ORDERED: NEOSTIGMINE 1 MG/ML, 10ML ONE (06:28)
[2019-03-11] MEDS ORDERED: GLYCOPYRROLATE 0.2MG/1ML, 5ML ONE (06:28)
[2019-03-11] MEDS ORDERED: SCOPOLAMINE PATCH, 1.5MG PATCH.TD72 TD ONE (06:30)
[2019-03-11] MEDS ORDERED: ACETAMINOPHEN 500 MG TABLET PO ONE (06:30)
[2019-03-11] MEDS ORDERED: GABAPENTIN 300 MG CAPSULE PO ONE (06:30)
[2019-03-11 06:48] LABS: HCG UR SG 1.018 (1.003-1.030)
[2019-03-11] MEDS ORDERED: PROMETHAZINE 25 MG/ML, 1ML IM PRN ×2 (07:00)
[2019-03-11] MEDS ORDERED: hydrALAzine 20 MG/ML, 1ML IV PRN (07:00)
[2019-03-11] MEDS ORDERED: PROMETHAZINE 12.5 MG SUPP PR PRN (07:00)
[2019-03-11] MEDS ORDERED: FENTANYL PF 100 MCG/2ML IV PRN (07:00)
[2019-03-11] MEDS ORDERED: MEPERIDINE/PF 25MG/0.5ML IVPush PRN (07:00)
[2019-03-11] MEDS ORDERED: OXYcodone 5 MG/5 ML ORAL.SOL UDC PO PRN (07:00)
[2019-03-11] MEDS ORDERED: PROMETHAZINE 25 MG SUPP PR PRN (07:00)
[2019-03-11] MEDS ORDERED: ONDANSETRON 2MG/ML, 2ML IV PRN (07:00)
[2019-03-11] MEDS ORDERED: LABETALOL 5MG/ML, 20ML IV PRN (07:00)
[2019-03-11] MEDS ORDERED: ONDANSETRON ODT 8 MG PO PRN (07:00)
[2019-03-11] MEDS ORDERED: HALOPERIDOL 5 MG/ML IV PRN (07:00)
[2019-03-11] MEDS ORDERED: BACITRACIN 50,000 UNIT ONE (07:15)
[2019-03-11] MEDS ORDERED: FENTANYL PF 100 MCG/2ML ONE (07:38)
[2019-03-11] MEDS ORDERED: HYDROmorphone 2 MG/ML, 1ML ONE ×2 (08:14→09:03)
[2019-03-11] MEDS ORDERED: PROMETHAZINE 25 MG/ML, 1ML ONE (08:14)
[2019-03-11] MEDS: PROMETHAZINE 25 MG/ML, 1ML IV PRN ×2 (08:15→08:52)
[2019-03-11] MEDS: HYDROmorphone 2 MG/ML, 1ML IVPush PRN ×6 (08:20→09:12)
[2019-03-11] MEDS ORDERED: HYDROmorphone PCA 30 MG/30 ML IV PRN (08:30)
[2019-03-11] MEDS ORDERED: ENALAPRILAT 1.25 MG/ML, 2ML IV PRN (08:30)
[2019-03-11] MEDS ORDERED: HYDROmorphone 2 MG/ML, 1ML IVPush PRN (08:30)
[2019-03-11] MEDS ORDERED: ONDANSETRON 2MG/ML, 2ML IVPush PRN (08:30)
[2019-03-11] MEDS ORDERED: DIPHENHYDRAMINE 50 MG/ML, 1ML IV PRN (08:30)
[2019-03-11] MEDS: OMEPRAZOLE 20 MG CAPSULE.DR PO SCH (09:00)
[2019-03-11 10:00] VITALS: BP 121/81
[2019-03-11] MEDS: POTASSIUM CHLORIDE 20 MEQ in SODIUM CHLORIDE 0.9% 1,000 ML IV SCH ×2 (10:31→20:49)
[2019-03-11 14:19] VITALS: BP 119/88
[2019-03-11] MEDS ORDERED: KETOROLAC 30 MG/1 ML ONE (14:50)
[2019-03-11 18:59] VITALS: BP 124/86
[2019-03-11] MEDS: DULOXETINE 30 MG CAPSULE.DR PO SCH (20:49)
[2019-03-12 00:46] VITALS: BP 121/83
[2019-03-12] MEDS: RIZATRIPTAN 10MG TABLET PO PRN ×3 (01:18→10:03)
[2019-03-12] MEDS: ENOXAPARIN 40 MG/0.4 ML SQ SCH (04:51)
[2019-03-12] MEDS: POTASSIUM CHLORIDE 20 MEQ in SODIUM CHLORIDE 0.9% 1,000 ML IV SCH ×3 (04:51→23:22)
[2019-03-12 05:42] LABS: CALCIUM 8.1 mg/dL (8.5-10.1); CHLORIDE 116 mmol/L (98-107)
[2019-03-12 05:48] LABS: ALANINE AMINOTRANSFERASE 76 U/L (12-78); ALBUMIN 3.1 g/dL (3.4-5.0); ALKALINE PHOSPHATASE 149 U/L (45-117); BILIRUBIN,TOTAL 0.5 mg/dL (0.2-1.0); CREATININE 0.54 mg/dL (0.55-1.02)
[2019-03-12 06:10] LABS: BASOPHILS # (AUTO) 0.03 x10^3/uL (0-0.1); BASOPHILS % (AUTO) 0 % (0-1); EOSINOPHILS # (AUTO) 0.06 x10^3/uL (0-0.4); EOSINOPHILS % (AUTO) 0 % (1-7); LYMPHOCYTES # (AUTO) 1.43 x10^3/uL (1-3.4); LYMPHOCYTES % (AUTO) 11 % (22-44); MD NO; MEAN CORPUSCULAR HEMOGLOBIN 32.3 pg (27.0-34.8); MEAN CORPUSCULAR HGB CONC 32.6 g/dL (32.4-35.8); MEAN CORPUSCULAR VOLUME 99.2 fL (80-100); MEAN PLATELET VOLUME 10.8 fL (7.4-10.4); MONOCYTES # (AUTO) 1.18 x10^3/uL (0.2-0.8); MONOCYTES % (AUTO) 9 % (2-9); NEUTROPHILS # (AUTO) 10.05 x10^3/uL (1.8-6.8); NEUTROPHILS % (AUTO) 79 % (42-75); PLATELET COUNT 156 x10^3/uL (130-400); RED BLOOD COUNT 3.76 x10^6/uL (3.82-5.3); RED CELL DISTRIBUTION WIDTH 14.9 % (9.6-15.2)
[2019-03-12 06:35] LABS: ANION GAP 9 mmol/L (5-15)
[2019-03-12 07:56] VITALS: BP 125/77
[2019-03-12] MEDS: OMEPRAZOLE 20 MG CAPSULE.DR PO SCH (08:58)
[2019-03-12] MEDS: DULOXETINE 30 MG CAPSULE.DR PO SCH (09:00)
[2019-03-12] MEDS: ACETAMINOPHEN 650 MG/20.3 ML UDC PO PRN ×2 (13:13→17:31)
[2019-03-12 13:27] VITALS: BP 101/70
[2019-03-12] MEDS ORDERED: CYCLOBENZAPRINE 10 MG TABLET ONE (13:58)
[2019-03-12] MEDS ORDERED: PROCHLORPERAZINE 10MG TABLET PO PRN (14:00)
[2019-03-12] MEDS: CYCLOBENZAPRINE 10 MG TABLET PO PRN (14:07)
[2019-03-12 19:51] VITALS: BP 98/56
[2019-03-13 01:14] VITALS: BP 114/75
[2019-03-13] MEDS: ENOXAPARIN 40 MG/0.4 ML SQ SCH (04:35)
[2019-03-13] MEDS: RIZATRIPTAN 10MG TABLET PO PRN (04:38)
[2019-03-13 05:33] LABS: BASOPHILS # (AUTO) 0.03 x10^3/uL (0-0.1); BASOPHILS % (AUTO) 1 % (0-1); EOSINOPHILS # (AUTO) 0.32 x10^3/uL (0-0.4); EOSINOPHILS % (AUTO) 4 % (1-7); LYMPHOCYTES # (AUTO) 1.25 x10^3/uL (1-3.4); LYMPHOCYTES % (AUTO) 17 % (22-44); MD NO; MEAN CORPUSCULAR HEMOGLOBIN 32.6 pg (27.0-34.8); MEAN CORPUSCULAR HGB CONC 32.9 g/dL (32.4-35.8); MEAN CORPUSCULAR VOLUME 99.2 fL (80-100); MEAN PLATELET VOLUME 10.4 fL (7.4-10.4); MONOCYTES # (AUTO) 0.57 x10^3/uL (0.2-0.8); MONOCYTES % (AUTO) 8 % (2-9); NEUTROPHILS # (AUTO) 5.12 x10^3/uL (1.8-6.8); NEUTROPHILS % (AUTO) 70 % (42-75); PLATELET COUNT 120 x10^3/uL (130-400); RED BLOOD COUNT 3.18 x10^6/uL (3.82-5.3); RED CELL DISTRIBUTION WIDTH 14.6 % (9.6-15.2)
[2019-03-13 05:43] LABS: CHLORIDE 113 mmol/L (98-107)
[2019-03-13 05:52] LABS: ALANINE AMINOTRANSFERASE 54 U/L (12-78); ALKALINE PHOSPHATASE 134 U/L (45-117); ANION GAP 3 mmol/L (5-15); BILIRUBIN,TOTAL 0.6 mg/dL (0.2-1.0); CALCIUM 8.2 mg/dL (8.5-10.1); CREATININE 0.43 mg/dL (0.55-1.02)
[2019-03-13] MEDS: DULOXETINE 30 MG CAPSULE.DR PO SCH (07:51)
[2019-03-13] MEDS: OMEPRAZOLE 20 MG CAPSULE.DR PO SCH (07:52)
[2019-03-13 07:53] VITALS: BP 114/68
[2019-03-13] MEDS: ACETAMINOPHEN 650 MG/20.3 ML UDC PO PRN ×2 (08:02→17:21)
[2019-03-13] MEDS: POTASSIUM CHLORIDE 20 MEQ in SODIUM CHLORIDE 0.9% 1,000 ML IV SCH ×2 (08:02→22:04)
[2019-03-13] MEDS: OXYcodone 5 MG/5 ML ORAL.SOL UDC PO PRN ×5 (11:21→23:37)
[2019-03-13] MEDS: CALCIUM CARBONATE 500 MG TAB.CHEW PO PRN ×2 (11:27→13:27)
[2019-03-13 13:18] VITALS: BP 101/69
[2019-03-13] MEDS: CYCLOBENZAPRINE 10 MG TABLET PO PRN (13:18)
[2019-03-13] MEDS: SUMATRIPTAN 50 MG TABLET PO PRN (17:21)
[2019-03-13 19:47] VITALS: BP 101/71
[2019-03-13] MEDS: CEPHALEXIN 500 MG CAPSULE PO SCH (20:30)
[2019-03-14] MEDS: ACETAMINOPHEN 650 MG/20.3 ML UDC PO PRN ×3 (01:19→21:58)
[2019-03-14] MEDS: SUMATRIPTAN 50 MG TABLET PO PRN ×2 (01:19→17:31)
[2019-03-14] MEDS: OXYcodone 5 MG/5 ML ORAL.SOL UDC PO PRN ×7 (03:24→21:58)
[2019-03-14 03:30] VITALS: BP 109/75
[2019-03-14 04:55] LABS: BASOPHILS # (AUTO) 0.02 x10^3/uL (0-0.1); BASOPHILS % (AUTO) 0 % (0-1); EOSINOPHILS # (AUTO) 0.22 x10^3/uL (0-0.4); EOSINOPHILS % (AUTO) 3 % (1-7); LYMPHOCYTES # (AUTO) 1.35 x10^3/uL (1-3.4); LYMPHOCYTES % (AUTO) 21 % (22-44); MD NO; MEAN CORPUSCULAR HEMOGLOBIN 32.6 pg (27.0-34.8); MEAN CORPUSCULAR HGB CONC 33.1 g/dL (32.4-35.8); MEAN CORPUSCULAR VOLUME 98.6 fL (80-100); MEAN PLATELET VOLUME 10.5 fL (7.4-10.4); MONOCYTES # (AUTO) 0.47 x10^3/uL (0.2-0.8); MONOCYTES % (AUTO) 7 % (2-9); NEUTROPHILS % (AUTO) 68 % (42-75); PLATELET COUNT 119 x10^3/uL (130-400); RED BLOOD COUNT 3.07 x10^6/uL (3.82-5.3); RED CELL DISTRIBUTION WIDTH 14.8 % (9.6-15.2)
[2019-03-14 05:04] LABS: CHLORIDE 110 mmol/L (98-107)
[2019-03-14 05:11] LABS: ALANINE AMINOTRANSFERASE 40 U/L (12-78); ALBUMIN 2.8 g/dL (3.4-5.0); ALKALINE PHOSPHATASE 139 U/L (45-117); ANION GAP 5 mmol/L (5-15); BILIRUBIN,TOTAL 0.5 mg/dL (0.2-1.0); CALCIUM 8.3 mg/dL (8.5-10.1); CREATININE 0.45 mg/dL (0.55-1.02); TOTAL PROTEIN 5.9 g/dL (6.4-8.2)
[2019-03-14] MEDS: ENOXAPARIN 40 MG/0.4 ML SQ SCH (06:21)
[2019-03-14] MEDS: CALCIUM CARBONATE 500 MG TAB.CHEW PO PRN ×2 (06:27→17:38)
[2019-03-14] MEDS ORDERED: CEPHALEXIN 250 MG CAPSULE ONE (07:45)
[2019-03-14] MEDS: OMEPRAZOLE 20 MG CAPSULE.DR PO SCH (07:47)
[2019-03-14] MEDS: DULOXETINE 30 MG CAPSULE.DR PO SCH (07:47)
[2019-03-14 08:11] VITALS: BP 100/68
[2019-03-14] MEDS: CEPHALEXIN 500 MG CAPSULE PO SCH ×2 (09:00→21:15)
[2019-03-14] MEDS: POTASSIUM CHLORIDE 20 MEQ in SODIUM CHLORIDE 0.9% 1,000 ML IV SCH (11:56)
[2019-03-14 13:03] VITALS: BP 124/82
[2019-03-14 20:10] VITALS: BP 114/80
[2019-03-15] MEDS: OXYcodone 5 MG/5 ML ORAL.SOL UDC PO PRN ×7 (01:08→21:15)
[2019-03-15 01:09] VITALS: BP 121/84
[2019-03-15] MEDS: POTASSIUM CHLORIDE 20 MEQ in SODIUM CHLORIDE 0.9% 1,000 ML IV SCH ×2 (01:24→14:52)
[2019-03-15 04:05] LABS: BASOPHILS # (AUTO) 0.02 x10^3/uL (0-0.1); BASOPHILS % (AUTO) 0 % (0-1); EOSINOPHILS # (AUTO) 0.17 x10^3/uL (0-0.4); EOSINOPHILS % (AUTO) 3 % (1-7); LYMPHOCYTES # (AUTO) 1.62 x10^3/uL (1-3.4); LYMPHOCYTES % (AUTO) 31 % (22-44); MD NO; MEAN CORPUSCULAR HEMOGLOBIN 32.8 pg (27.0-34.8); MEAN CORPUSCULAR HGB CONC 32.9 g/dL (32.4-35.8); MEAN CORPUSCULAR VOLUME 99.4 fL (80-100); MEAN PLATELET VOLUME 10.5 fL (7.4-10.4); MONOCYTES # (AUTO) 0.55 x10^3/uL (0.2-0.8); MONOCYTES % (AUTO) 11 % (2-9); NEUTROPHILS # (AUTO) 2.85 x10^3/uL (1.8-6.8); NEUTROPHILS % (AUTO) 55 % (42-75); PLATELET COUNT 129 x10^3/uL (130-400); RED BLOOD COUNT 3.13 x10^6/uL (3.82-5.3); RED CELL DISTRIBUTION WIDTH 14.6 % (9.6-15.2)
[2019-03-15 04:20] LABS: ALBUMIN 2.8 g/dL (3.4-5.0); ANION GAP 7 mmol/L (5-15); CALCIUM 8.4 mg/dL (8.5-10.1); CHLORIDE 108 mmol/L (98-107)
[2019-03-15 04:25] LABS: ALANINE AMINOTRANSFERASE 36 U/L (12-78); ALKALINE PHOSPHATASE 140 U/L (45-117); BILIRUBIN,TOTAL 0.8 mg/dL (0.2-1.0); CREATININE 0.43 mg/dL (0.55-1.02); TOTAL PROTEIN 5.9 g/dL (6.4-8.2)
[2019-03-15] MEDS: CALCIUM CARBONATE 500 MG TAB.CHEW PO PRN ×3 (04:28→18:28)
[2019-03-15] MEDS: ENOXAPARIN 40 MG/0.4 ML SQ SCH (05:23)
[2019-03-15 07:05] VITALS: BP 130/83
[2019-03-15] MEDS ORDERED: CEPHALEXIN 250 MG CAPSULE ONE (07:55)
[2019-03-15] MEDS: OMEPRAZOLE 20 MG CAPSULE.DR PO SCH (08:04)
[2019-03-15] MEDS: DULOXETINE 30 MG CAPSULE.DR PO SCH (08:05)
[2019-03-15] MEDS: CEPHALEXIN 500 MG CAPSULE PO SCH ×2 (08:05→21:15)
[2019-03-15 12:33] VITALS: BP 131/93
[2019-03-15] MEDS: SUMATRIPTAN 50 MG TABLET PO PRN (15:19)
[2019-03-15 21:05] VITALS: BP 110/70
[2019-03-16] MEDS: OXYcodone 5 MG/5 ML ORAL.SOL UDC PO PRN ×3 (00:37→06:41)
[2019-03-16] MEDS: CALCIUM CARBONATE 500 MG TAB.CHEW PO PRN ×2 (00:39→11:32)
[2019-03-16 03:36] VITALS: BP 125/86
[2019-03-16] MEDS: POTASSIUM CHLORIDE 20 MEQ in SODIUM CHLORIDE 0.9% 1,000 ML IV SCH (04:20)
[2019-03-16] MEDS: ENOXAPARIN 40 MG/0.4 ML SQ SCH (05:50)
[2019-03-16] MEDS ORDERED: ONDANSETRON ODT 4 MG ONE (05:54)
[2019-03-16] MEDS ORDERED: ONDANSETRON ODT 4 MG PO PRN (06:00)
[2019-03-16] MEDS ORDERED: CEPHALEXIN 250 MG CAPSULE ONE (07:29)
[2019-03-16 07:40] VITALS: BP 135/88
[2019-03-16] MEDS: DULOXETINE 30 MG CAPSULE.DR PO SCH (07:42)
[2019-03-16] MEDS: OMEPRAZOLE 20 MG CAPSULE.DR PO SCH (07:42)
[2019-03-16] MEDS: CEPHALEXIN 500 MG CAPSULE PO SCH (09:00)
[2019-03-16 09:19] LABS: BASOPHILS # (AUTO) 0.02 x10^3/uL (0-0.1); BASOPHILS % (AUTO) 0 % (0-1); EOSINOPHILS # (AUTO) 0.09 x10^3/uL (0-0.4); EOSINOPHILS % (AUTO) 1 % (1-7); LYMPHOCYTES # (AUTO) 1.05 x10^3/uL (1-3.4); LYMPHOCYTES % (AUTO) 13 % (22-44); MD NO; MEAN CORPUSCULAR HEMOGLOBIN 32.9 pg (27.0-34.8); MEAN CORPUSCULAR VOLUME 99.5 fL (80-100); MEAN PLATELET VOLUME 10.6 fL (7.4-10.4); MONOCYTES % (AUTO) 6 % (2-9); NEUTROPHILS # (AUTO) 6.67 x10^3/uL (1.8-6.8); NEUTROPHILS % (AUTO) 80 % (42-75); PLATELET COUNT 156 x10^3/uL (130-400); RED CELL DISTRIBUTION WIDTH 14.4 % (9.6-15.2)
[2019-03-16 09:20] LABS: HEMOGRAM NOTE RECHECKED
[2019-03-16 09:23] LABS: ALANINE AMINOTRANSFERASE 31 U/L (12-78); ANION GAP 7 mmol/L (5-15); CALCIUM 8.3 mg/dL (8.5-10.1); CHLORIDE 107 mmol/L (98-107); CREATININE 0.38 mg/dL (0.55-1.02)
[2019-03-16 09:25] LABS: ALKALINE PHOSPHATASE 143 U/L (45-117); BILIRUBIN,TOTAL 1.1 mg/dL (0.2-1.0); TOTAL PROTEIN 6.3 g/dL (6.4-8.2)
[2019-03-16] MEDS: ACETAMINOPHEN 650 MG/20.3 ML UDC PO PRN (11:32)
[2019-03-16] MEDS: SUMATRIPTAN 50 MG TABLET PO PRN (11:33)
[2019-03-16 12:46] VITALS: BP 105/73
== END 2019-03-16 16:40 | disposition home or self-care (01) | DRG 354 ==
LOC: OUT 05:07 → 4NOR 09:35 → OUT 21:02 → DCLOUNGE 03-16 16:35
PROVIDERS: ADMIT Surgery; ATTEND Surgery
PROC: 0WUF0JZ Supplement Abdominal Wall with Synthetic Substitute, Open Approach (ICD-10-PCS; principal; 2019-03-11 07:00)
DX: K43.2 Incisional hernia without obstruction or gangrene (principal); K56.7 Ileus, unspecified; D72.829 Elevated white blood cell count, unspecified; Z88.5 Allergy status to narcotic agent; Z88.0 Allergy status to penicillin; Z88.8 Allergy status to other drugs, medicaments and biological substances; K21.9 Gastro-esophageal reflux disease without esophagitis; K66.0 Peritoneal adhesions (postprocedural) (postinfection); F41.9 Anxiety disorder, unspecified; Z87.891 Personal history of nicotine dependence; Z83.3 Family history of diabetes mellitus; E66.01 Morbid (severe) obesity due to excess calories; Z68.39 Body mass index [BMI] 39.0-39.9, adult
CPT/HCPCS: 36415; Q0164; 80053; 81025; 85025; 88302; 93005; G0378; J0690; J1100; J1170; J1650; J1885; J2250; J2405; J2550; J2704; J2710; J3010; J3480; Q0162; C1781; J7030; J7120

== ENCOUNTER 2019-08-10 09:39 | Outpatient (CLI) | payer BC, OTHER | END 2019-08-10 23:59 | disposition home or self-care (01) | LOC: LAB 09:39 → MERGE 09:39 → LAB 23:59 | PROVIDERS: ATTEND Nurse Practitioner Family | DX: Z02.9 Encounter for administrative examinations, unspecified (principal) ==

== ENCOUNTER → 2021-04-11 | Outpatient (CLI) | payer OTHER ==
[~2021-04-11] MED LIST changes: -CYCL-259 PO; +CYCL10TA2 PO; -PANT40TA5 PO; +PANT40TA6 PO; -SUMA1TAB PO; +SUMA1TAB12 PO
== END | disposition home or self-care (01) ==
LOC: LAB 08:54
PROVIDERS: ATTEND Obstetrics & Gynecology
DX: Z11.3 Encounter for screening for infections with a predominantly sexual mode of transmission (principal)
CPT/HCPCS: 36415; 86592; 87340; 87806; G0475

== ENCOUNTER → 2021-06-13 | Outpatient (CLI) | payer OTHER ==
[2021-06-13 10:58] LABS: BASOPHILS % (AUTO) 1 % (0-1); EOSINOPHILS % (AUTO) 4 % (1-7); LYMPHOCYTES % (AUTO) 29 % (22-44); MEAN CORPUSCULAR HEMOGLOBIN 33.4 pg (27.0-34.8); MEAN CORPUSCULAR HGB CONC 32.9 g/dL (32.4-35.8); MONOCYTES % (AUTO) 7 % (2-9); NEUTROPHILS % (AUTO) 60 % (42-75); PLATELET COUNT 144 x10^3/uL (130-400); RED BLOOD COUNT 4.54 x10^6/uL (3.82-5.3); RED CELL DISTRIBUTION WIDTH 13.2 % (9.6-15.2)
[2021-06-13 11:07] LABS: MICROSCOPIC AUTO
[2021-06-13 11:10] LABS: ALBUMIN 3.4 g/dL (3.4-5.0); ANION GAP 6 mmol/L (5-15); CALCIUM 7.8 mg/dL (8.5-10.1); CHLORIDE 115 mmol/L (98-107)
[2021-06-13 11:35] LABS: % IRON SATURATION 37 % (20-55); ALANINE AMINOTRANSFERASE 19 U/L (12-78); ALKALINE PHOSPHATASE 176 U/L (45-117); BILIRUBIN,TOTAL 0.7 mg/dL (0.2-1.0); CREATININE 0.55 mg/dL (0.55-1.02); IRON LEVEL 127 mcg/dL (50-170); TOTAL IRON BINDING CAPACITY 341 mcg/dL (250-450); TOTAL PROTEIN 6.7 g/dL (6.4-8.2)
== END | disposition home or self-care (01) ==
LOC: LAB 10:40
PROVIDERS: ATTEND Internal Medicine
DX: K21.9 Gastro-esophageal reflux disease without esophagitis (principal); D51.9 Vitamin B12 deficiency anemia, unspecified; E61.1 Iron deficiency; G43.711 Chronic migraine without aura, intractable, with status migrainosus; R53.83 Other fatigue; R74.8 Abnormal levels of other serum enzymes; Z87.440 Personal history of urinary (tract) infections; Z98.84 Bariatric surgery status
CPT/HCPCS: 36415; 80053; 81001; 82607; 82728; 83540; 83550; 84443; 85025